=== PATIENT | female | born 1950 | race Caucasian/White ===

== ENCOUNTER 2017-02-05 14:32 | Emergency (ER) | payer OTHER ==
[2017-02-05 14:53] VITALS: RESP 16; TEMP 98.6
--- NOTE | 2017-02-05 15:25 | UCPHY ---
H & P Time Seen by Provider: 02/05/17 15:16 Patient Type: Established HPI/ROS: CHIEF COMPLAINT: Foreign body in eye. HISTORY OF PRESENT ILLNESS: The patient is a 66-year-old female presenting with a foreign body sensation in her left eye. The patient is unable to recall any debris getting in her eye. She suspects it could be mascara, it feels like there is an eyelash in her eye. She rubbed her eye and now it feels scratchy. When she looks to the left she feels it more and states it interferes with her vision. The patient wears glasses, she has not worn contacts recently. REVIEW OF SYSTEMS: General: No recent fever or chills Eyes: No change in VA, or diplopia. No reddness or discharge or trauma. No swelling of the eye lid margin. [Contact lens wear: ] No [Glasses: ] Occasionally Past Medical/Surgical History: Chronic pain. Partial hysterectomy. Social History: . Smoking Status: Never smoked Physical Exam: General Appearance: Alert, no distress. Afebrile. Normal phonation. No respiratory distress. Eyes: Pupils equal and round no pallor or injection. No icterus ENT, Mouth: Mucous membranes moist. Pharynx without erythema or exudate. TM Clear. Neurological: Ox3. No motor weakness. Sensation intact. Gait nl. Skin: Warm and dry, no rashes. General Appearance: Alert, no distress. Afebrile. Normal phonation. No respiratory distress. Eyes: Pupils equal and round no pallor or injection. No icterus. Lids without changes. No ptosis. No erythema of bulbar and eyelid conjunctival surface without flare or limbal predominance. No spasm or pain with light. No preauricular nodes. I do see an eyelash on the lower eyelid that wrists on the cornea at rest, at which time she complains of foreign body sensation When I have some gentle retraction of the lower eyelid this comes up off the surface and she reports no irritation at that time. Interestingly, this eye lash is not in the usual row or sequence of the either eye lashes Eyelid was everted on 2 occasions using a Q-tip without any foreign body found Flourescein: Negative uptake Neck: No adenopathy. Supple. Psych: Calm. Constitutional: Initial Vital Signs Temperature (C) 37 C 02/05/17 14:51 Heart Rate 88 02/05/17 14:51 Respiratory Rate 16 02/05/17 14:51 Blood Pressure 131/98 H 02/05/17 14:51 O2 Sat (%) 99 02/05/17 14:51 O2 Delivery Mode Room Air Allergies/Adverse Reactions: NSAIDS (Non-Steroidal Anti-Inflamma Allergy (Verified 02/05/17 14:51) Opioids - Morphine Analogues Allergy (Verified 02/05/17 14:51) Sulfa (Sulfonamide Antibiotics) Allergy (Verified 02/05/17 14:51) Home Medications: Medication Instructions Recorded Lorazepam 05/19/16 Mirtazapine 05/19/16 Nortriptyline HCl 05/19/16 Medical Decision Making ED Course/Re-evaluation: The patient is a 66-year-old female presenting with a foreign body sensation in her left eye. Fluorescein sodium was placed in her left eye. I examined the eye. I was able to retract an eyelash from the lower lid. Thereby I removed the eyelash with tweezers. However she had some residual symptoms, thus she asked for a high anesthetic She has some residual discomfort but does feel improvement. She will followup with her PCP tomorrow. Differential Diagnosis: Diagnostic considerations include, but are not limited to, the following: Corneal abrasion, Corneal FB, conjunctival foreign body, allergic conjunctivitis , bacterial conjunctivitis, viral conjunctivitis, chemical conjunctivitis - Data Points Medications Given: Discontinued Medications Proparacaine HCl (Alcaine 0.5%) 2 drops LEFTEYE ONCE ONE Stop: 02/05/17 16:00 Last Admin: 02/05/17 16:02 Dose: 2 drops Departure - Departure Disposition: Home, Routine, Self-Care Clinical Impression: Foreign body in eye Qualifiers: Encounter type: initial encounter Laterality: left Qualified Code(s): T15.92XA - Foreign body on external eye, part unspecified, left eye, initial encounter Condition: Good Instructions: Eye Foreign Body (ED) Additional Instructions: Followup with your eye physician tomorrow, if still any residual sx. Referrals: Angelito Mojica MD [Primary Care Provider] - As per Instructions - PQRS PQRS Measurement: NA Report Scribed for: Jean Landaverde Report Scribed by: Sri Jones Date of Report: 02/05/17 Time of Report: 15:26
[2017-02-05] MEDS ORDERED: PROPARACAINE 0.5% 15 ML OPHT DROP LEFTEYE ONE (15:59)
[2017-02-05 16:00] VITALS: BP 124/95; PULSE 81; O2SAT 96
== END 2017-02-05 16:02 | disposition home or self-care (01) ==
LOC: CED 14:32
PROC: 08C1XZZ Extirpation of Matter from Left Eye, External Approach (ICD-10-PCS; principal; 2017-02-05)
DX: T15.92XA Foreign body on external eye, part unspecified, left eye, initial encounter (principal)
CPT/HCPCS: 65205; G0463; 65220-PO; 99214-PO

== ENCOUNTER → 2017-06-19 | Outpatient (CLI) | payer OTHER | LOC: BHFA 10:45 | PROVIDERS: ATTEND Internal Medicine Cardiovascular Disease | DX: R00.2 Palpitations (principal) ==

== ENCOUNTER → 2017-09-20 | Outpatient (CLI) | payer OTHER | LOC: CIMAGING 08:56 | PROVIDERS: ATTEND Internal Medicine | DX: N83.01 Follicular cyst of right ovary (principal); E78.1 Pure hyperglyceridemia; Z90.710 Acquired absence of both cervix and uterus | CPT/HCPCS: 76700-PO; 76856-PO; 80048-PO ==